=== PATIENT | male | born 1980 | race African-American/Black ===

== ENCOUNTER 2020-10-30 15:05 | Emergency (ER) | payer SELFPAY ==
[2020-10-30 15:20] VITALS: BP 146/81; PULSE 76; RESP 18; TEMP 36.9; O2SAT 98; BMI 23.7
[2020-10-30 15:31] VITALS: BP 142/85; PULSE 81; RESP 16; TEMP 36.9; O2SAT 99; BMI 23.8
--- NOTE | 2020-10-30 15:42 | HMH.EDUTC ---
[facility] [place] Disposition Clinical Impression: Finger laceration Qualifiers: Encounter type: initial encounter Finger: little finger Damage to nail status: without damage Foreign body presence: without foreign body Laterality: right Qualified Code(s): S61.216A - Laceration without foreign body of right little finger without damage to nail, initial encounter Disposition: Home, Self-Care Condition on Discharge: Good Instructions: How to Care for a Laceration After Repair, Laceration Repair, DI for Laceration Repair -- Simple Additional Instructions: Suture instructions: You have required stitches today. Please read the following instructions so you know how to care for them: 1. Keep wound area dry for the first 24 hours. 2 May clean gently with mild soap and water, after 48 hours to prevent crusting over suture knots. 3. You may shower if your provider gives permission but do not take a bath until the skin is healed.. 4. Never leave a wet dressing or Band-Aid on your stitches as this allows bacteria to reach the area and may cause infection. Band-aids can cause the wound to sweat and not recommended to wear for long periods of time Watch for signs of infection: Increasing redness, tenderness or warmth around the suture site Unusual swelling around the site Appearance of pus around each suture or any red streaks Fever If you develop any of the above signs or symptoms of infection, Follow up with Family Physician immediately 5. Suture removal in __10-12__days 6. Return to [facility] or follow up with family doctor for removal. This can be done by any medical provider during regular hours on Sunday through Sunday, by appointment. Referrals: Provider,Referral, MD [Primary Care Provider] - As needed Time of Disposition: 16:10 Medical Decision Making - Vivek Inquiry Pt receiving controlled substance: No Vivek was queried for this patient: No Vital Signs: 10/30/20 15:20 10/30/20 15:31 10/30/20 16:21 Temperature 98.4 F 98.5 F 98 F Temperature Source Oral Oral Pulse Rate 79 Pulse Rate [Right Radial] 76 81 Respiratory Rate 18 16 16 Blood Pressure 137/82 Blood Pressure [Right Arm] 146/81 H 142/85 H Blood Pressure Mean [Right Arm] 102 104 02 Sat by Pulse Oximetry 98 99 Oxygen Delivery Method Room Air Orders (Tests/Meds): ED MEDICATIONS Discontinued Medications Generic Name Dose Route Start Last Admin Trade Name Freq PRN Reason Stop Dose Admin Tetanus/Reduced Diphtheria/Acell Pertussis 0.5 ml 10/30/20 16:05 10/30/20 16:15 Tet/Diphth/Pert-Adult 0.5ml Syringe IM 10/30/20 16:06 0.5 ml .ONCE ONE Administration Medical Decision Narrative: Patient unsure of last tetanus wound irrigated well and closed with 40 sutures wound edges approximated well will place nonstick dressing and finger splint due to laceration being at joint [facility] [place] HPI - General Stated complaint: ao 10/30/20 0 hour lac to Rt pinky Time Seen by Provider: 10/30/20 15:42 Mode of Arrival: Ambulatory Source of Information: Patient Limitations: No Limitations Description of Symptoms (Recalled from Triage Doc. by RN): R pinky lac. he was washing dishes and thinks he cut it on a piece of glass. HEENT Symptoms (Recalled from RN notes): No Resp Symptoms (Recalled from RN notes): No Skin Symptoms (Recalled from RN notes): Yes (lac on R pinky.) MS Symptoms (Recalled from RN notes): No Functional Status (Recalled from RN notes): na - History of Present Illness Provider Complaint: Patient states he was washing dishes when a broken glass in the dishwater caused lacertion to his right little finger State that he immediately pulled his hand out of the water and saw laceration so family brought him in to get it checked - Related Data Previous Rx's Medication Instructions Recorded Ibuprofen [Ibuprofen 800mg 800 mg PO Q8HP PRN #20 tab 03/15/18 Tablet] Penicillin V Potassium 500 mg PO Q6H #40 tablet 03/15/18 Allergies Allergy/AdvRe
[2020-10-30 16:21] VITALS: BP 137/82; PULSE 79; RESP 16; TEMP 36.6
== END 2020-10-30 16:25 | disposition home or self-care (01) ==
PROVIDERS: Emergency Provider Emergency Medicine
DX: S61.216A Laceration without foreign body of right little finger without damage to nail, initial encounter (principal); W25.XXXA Contact with sharp glass, initial encounter; Y92.9 Unspecified place or not applicable; Z23 Encounter for immunization
CPT/HCPCS: 12001; 90471; 90715; 99202; G0463